=== PATIENT | male | born 1970 | race Two or more races ===

== ENCOUNTER 2017-09-08 15:14 | Emergency (ER) | payer OTHER ==
[~2017-09-08] VITALS: Ht 182.9 cm; Wt 79.4 kg
[2017-09-08 15:20] VITALS: BP 130/80
--- NOTE | 2017-09-08 15:41 | Emergency Room Report ---
History of Present Illness General Chief Complaint: Alcohol Intoxication Source: Patient Present Illness HPI 46-year-old male patient presents to ER complaining of EtOH intoxication. Reports last drink alcohol 3 hours ago. Reports history of alcohol abuse, states that he has been sober for for the past under days. Prior to that he was sober for 8 years.. Denies drug use. Reports history of anxiety, requesting ativan, states normally treated with Ativan for treatment of anxiety. Reports has not taken medication for the past day because he began drinking. Denies fever, chest pain, shortness of breath. Denies other acute symptoms. Denies vomiting. denies thoughts of hurting himself or others. Allergies: Coded Allergies: No Known Allergies (Unverified , 09/08/17) Patient History Past Medical History: see triage record Reviewed Nursing Documentation: PMH: Agreed; PSxH: Agreed Nursing Documentation-PMH History Of Psychiatric Problem: Yes - ANXIETY, DEPRESSION Review of Systems All Other Systems: negative except mentioned in HPI Physical Exam Vital Signs Date Time Temp Pulse Resp B/P (MAP) Pulse Ox O2 Delivery O2 Flow Rate FiO2 09/08/17 15:11 98.0 88 18 130/80 98 Room Air 98.1 Sp02 EP Interpretation: reviewed, normal General Appearance: well appearing, no apparent distress, alert, GCS 15, non- toxic Head: normocephalic, atraumatic Eyes: bilateral eye normal inspection, bilateral eye PERRL ENT: hearing grossly normal, normal pharynx, no angioedema, normal voice, uvula midline, moist mucus membranes Neck: full range of motion Respiratory: lungs clear, normal breath sounds, no rhonchi, no respiratory distress, no accessory muscle use, no wheezing, speaking full sentences Cardiovascular #1: regular rate, rhythm, no edema Gastrointestinal: non tender, soft, no mass, non-distended, no guarding, no rebound Musculoskeletal: back normal, digits/nails normal, gait/station normal, normal range of motion, non-tender Neurologic: alert, oriented x3, responsive, motor strength/tone normal, sensory intact Psychiatric: mood/affect normal Medical Decision Making PA Attestation Dr. Nicholas is my supervising Physician whom patient management has been discussed with. Diagnostic Impression: Primary Impression: Acute alcoholic intoxication ER Course Pt. presents to the ED for alcohol intoxication Ddx considered but are not limited to drug use, alcohol use, psychosis. Vital signs: are WNL, pt. is afebrile ER COURSE: provide patient with Ativan, Zofran and fluids. Will allow patient to sober up prior to discharge. patient resting comfortably in bed, in no acute distress, nontoxic appearing. Physical exam benign, lungs clear to auscultation, no trauma or lacerations, no abdominal TTP. Will allow patient to sleep off EtOH intoxication Patient sleeping, in no acute distress. Patient requested food. Patient able to drink liquids without difficulty. Patient able to answer questions, and AOx4 patient requesting to leave. Patient able to walk and talk without difficulty. Patient denies acute symptoms in the ER at this time. Patient requesting to be discharged home. Patient appears stable for discharge to home, ambulating without difficulty. Instructed patient to not drink alcohol in excess. ER precautions given. Do not believe patient is a danger to herself or others at this time. States he is going to followup with his sponsor. DISCHARGE: At this time pt is stable for d/c to home. Patient is resting comfortably, in no acute distress, nontoxic appearing, talking without difficulty. Patient to take medications as instructed Will provide with patient care instructions and any necessary prescriptions. Care plan and follow-up instructions provided. Patient instructed to follow-up with primary care provider in 3 - 5 days. Patient questions asked and answered. Patient reports understanding and agreement to treatment plan. ER precautions given. Patient instructed to return to ER immediately for any new or worsening of symptoms including but not limited to increasing SOB, persistent fever. - Please note that this Emergency Department Report was dictated using [employer] worker technology software, occasionally this can lead to erroneous entry secondary to interpretation by the dictation equipment. Last Vital Signs Date Time Temp Pulse Resp B/P (MAP) Pulse Ox O2 Delivery O2 Flow Rate FiO2 09/08/17 15:11 98.0 88 18 130/80 98 Room Air 98.1 Disposition: HOME, SELF-CARE Condition: Stable Patient Instructions: Alcohol Intoxication, [id number] Additional Instructions: Followup with primary care provider in 3 -5 days. Take medications as directed. Patient questions asked and answered. ER precautions given, patient instructed to return to ER immediately for any new or worsening of symptoms. Aime Barboza Sep 08, 2017 15:41
[2017-09-08] MEDS ORDERED: Sodium Chloride 500ML 500 ML IV ONE (15:45)
[2017-09-08] MEDS ORDERED: LORazepam Inj 2mg/ml 1ml IM ONE (16:15)
[2017-09-08 17:51] VITALS: BP 126/80
[2017-09-08 19:29] VITALS: BP 120/80
== END 2017-09-08 19:30 | disposition home or self-care (01) ==
LOC: EDBD 15:14 → EMR 15:54
DX: F10.129 Alcohol abuse with intoxication, unspecified (principal); F41.9 Anxiety disorder, unspecified; F32.9 Major depressive disorder, single episode, unspecified
CPT/HCPCS: 96360; 96372; 99283; J7040